=== PATIENT | female | born 1955 | race Caucasian/White ===

== ENCOUNTER → 2016-11-27 | Outpatient (CLI) | payer OTHER ==
[2015-11-01 10:09] VITALS: BP 119/80
[~2016-11-27] MED LIST: AMLO10TA4 PO; AMOX1TAB61 PO; BENZ100C PO; BUPR100T6 PO; CALC500T30 PO; CHOL500016 PO; CLOP75TA57 PO; CLOT10TR PO; ESCITALOPRAM OX20 MG PO; FAMO20TA5 PO; GABA-586 PO; GLUC100018 PO; GLYB5TAB3 PO; LAMO200T3 PO; LIPITOR80 MG PO; LISI-379 PO; METO25TA2 PO; MONT10TA6 PO; MUPI22OI2 TP; NYST15CR TP; PANT40TA3 PO; SITA1TAB7 PO; TRAM-48 PO
--- NOTE | 2016-11-27 10:36 | RAD ---
DATE: 11/27/2016. EXAM: DIGITAL SCREEN BILAT W/CAD. HISTORY: Routine mammographic screening. COMPARISON: 08/31/2014, 07/09/2010, 08/30/2013. This study was interpreted with the benefit of Computerized Aided Detection (CAD). FINDINGS: The breast parenchyma is primarily fatty replaced. There are no suspicious masses, microcalcifications or architectural distortion. A postbiopsy clip is noted superolaterally on the right. Scattered and coarse calcifications are benign. BI-RADS CATEGORY: 2 BENIGN FINDING(S). RECOMMENDED FOLLOW-UP: 12M 12 MONTH FOLLOW-UP. PQRS compliance statement: Patient information was entered into a reminder system with a target due date 11/27/2017 for the next mammogram. Mammography is a sensitive method for finding small breast cancers, but it does not detect them all and is not a substitute for careful clinical examination. A negative mammogram does not negate a clinically suspicious finding and should not result in delay in biopsying a clinically suspicious abnormality. "Our facility is accredited by the [employer]ography [employer]."
== END | disposition home or self-care (01) ==
LOC: MAMMO 08:40
PROVIDERS: ATTEND Family Medicine
DX: Z12.31 Encounter for screening mammogram for malignant neoplasm of breast (principal)
CPT/HCPCS: G0202; 77067

== ENCOUNTER 2017-07-30 17:13 | Emergency (ER) | payer OTHER ==
[~2017-07-30] VITALS: Ht 170.2 cm; Wt 75.7 kg
[2017-07-30 17:15] VITALS: BP 137/80
--- NOTE | 2017-07-30 17:59 | PHYS DOC ---
Past History Past Medical History: Diabetes, High Cholesterol, Hypertension, Other Past Surgical History: Appendectomy, Other Alcohol Use: Rarely Drug Use: None Adult General Chief Complaint Chief Complaint: NAUSEA/VOMITING/DIARRHEA HPI HPI Patient is a 62 year old F who presents with nausea and vomiting that started last night. Trace a states that she was seen at her doctor's office for left lower leg swelling and redness. She was diagnosed with cellulitis and started on Keflex. She is on taken 1 dose last night and began vomiting thereafter. She states that she does not feel this is related to her Keflex because she has had similar symptoms in the past without Keflex. She denies abdominal pain. She feels that the redness and swelling in her leg is improved with elevation. She is diabetic and her sugars have been running moderately high in the 200s recently. She feels this is due to a change in her diabetic medication. She has no other associated symptoms at this time. She has no other exacerbating or alleviating factors. Review of Systems Review of Systems Constitutional: Denies fever or chills [] Eyes: Denies change in visual acuity, redness, or eye pain [] HENT: Denies nasal congestion or sore throat [] Respiratory: Denies cough or shortness of breath [] Cardiovascular: No additional information not addressed in HPI [] GI: Negative except history of present illness : Denies dysuria or hematuria [] Musculoskeletal: Denies back pain or joint pain [] Integument: Negative except history of present illness Neurologic: Denies headache, focal weakness or sensory changes [] Endocrine: Denies polyuria or polydipsia [] All other systems were reviewed and found to be within normal limits, except as documented in this note. Family History Family History No pertinent family medical history was reported Allergies Allergies Allergies Coded Allergies Type Severity Reaction Last Updated Verified Sulfa (Sulfonamide Antibiotics) Allergy Intermediate Anaphylaxis 07/30/17 Yes aspirin Allergy Intermediate Anaphylaxis 07/30/17 Yes codeine Allergy Intermediate vomiting 07/30/17 Yes guaifenesin Allergy Intermediate 07/30/17 Yes ciprofloxacin Allergy Unknown Anaphylaxis 07/30/17 Yes dicyclomine Allergy Unknown 07/30/17 Yes erythromycin base Allergy Unknown Rash 07/30/17 Yes flurbiprofen Allergy Unknown Rash 07/30/17 Yes heparin Allergy Unknown Swelling 07/30/17 Yes medroxyprogesterone Allergy Unknown 07/30/17 Yes methylprednisolone Allergy Unknown 07/30/17 Yes metronidazole Allergy Unknown Swelling 07/30/17 Yes nitrofurantoin Allergy Unknown 07/30/17 Yes tolbutamide Allergy Unknown Anaphylaxis 07/30/17 Yes trimethoprim Allergy Unknown Anaphylaxis 07/30/17 Yes Uncoded Allergies Type Severity Reaction Last Updated Verified guiafenesin Allergy Intermediate 11/01/15 obsolete Allergy Intermediate 11/01/15 entex Allergy Unknown Rash 07/30/17 Physical Exam Physical Exam Constitutional: Well developed, well nourished, no acute distress, non-toxic appearance. [] HENT: Normocephalic, atraumatic Eyes: EOMI, conjunctiva normal, no discharge. [] Neck: Normal range of motion, no tenderness, supple, no stridor. [] Cardiovascular:Heart rate regular rhythm, Lungs & Thorax: Bilateral breath sounds clear to auscultation [] Abdomen: Bowel sounds normal, soft, no tenderness, no masses, no pulsatile masses. [] Skin: Warm, dry, no erythema, no rash. [] Extremities: No tenderness, no cyanosis, no clubbing, ROM intact, no edema. [] Neurologic: Alert and oriented X 3, normal motor function, normal sensory function, no focal deficits noted. [] Psychologic: Affect normal, judgement normal, mood normal. [] EKG EKG [] Radiology/Procedures Radiology/Procedures [] Course & Med Decision Making Course & Med Decision Making Pertinent Labs and Imaging studies reviewed. (See chart for details) Care was transferred to Dr. Maldonado at 1800 for further management. Signout obtained at 6 PM. Patient seen and examined by me. Chart review. Patient is currently asymptomatic and feels much better. Patient's ER workup has been negative with a normal CBC and CMP. Patient's physical exam currently does not show any erythema or abnormality to her lower extremity after 1 dose of Keflex. Etiology of her abdominal discomfort and nausea is unclear. Patient feels cold. However with the plan to be discharged home, stop all antibiotics, and follow-up with primary care doctor if her symptoms recur. Dragon Disclaimer Dragon Disclaimer This electronic medical record was generated, in whole or in part, using a voice recognition dictation system. Departure Departure: Impression: Primary Impression: Vomiting Additional Impression: Abdominal pain Disposition: HOME, SELF-CARE Condition: IMPROVED Referrals: GEO VERA DO (PCP) Patient Instructions: Cellulitis, Nausea and Vomiting Scripts Ondansetron (ZOFRAN ODT) 4 Mg Tab.rapdis 1 TAB SL Q8HRS for NAUSEA, #15 TAB Prov: MIL MALDONADO MD 07/30/17 Problem Qualifiers SOBEIDA WEEKS MD Jul 30, 2017 17:59 MIL MALDONADO MD Jul 30, 2017 19:54
[2017-07-30] MEDS ORDERED: IV NORMAL SALINE 1,000ML 1,000 ML IV ONE (18:00)
[2017-07-30] MEDS ORDERED: ONDANSETRON PF 4 MG/2 ML VIAL. IV ONE (18:00)
[2017-07-30] MEDS ORDERED: ONDANSETRON PF 4 MG/2 ML VIAL. ONE (18:05)
[2017-07-30 18:17] LABS: BASO % 0 % (0-3); EOS % 1 % (0-3); HEMATOCRIT 45.2 % (36.0-47.0); HEMOGLOBIN 15.4 g/dL (12.0-15.5); LYMPH # 1.6 x10^3/uL (1.0-4.8); LYMPH % 22 % (24-48); MEAN CORPUSCULAR HEMOGLOBIN 32 pg (25-35); MEAN CORPUSCULAR HGB CONC 34 g/dL (31-37); MEAN CORPUSCULAR VOLUME 93 fL (79-100); MONO # 0.6 x10^3/uL (0.0-1.1); MONO % 8 % (0-9); NEUT # 5.4 x10^3uL (1.8-7.7); NEUT % 70 % (31-73); PLATELET COUNT 267 x10^3/uL (140-400); RED BLOOD COUNT 4.84 x10^6/uL (3.50-5.40); RED CELL DISTRIBUTION WIDTH 13.5 % (11.5-14.5); WHITE BLOOD COUNT 7.6 x10^3/uL (4.0-11.0)
[2017-07-30 18:27] LABS: CALCIUM 10.2 mg/dL (8.5-10.1); CREATININE 1.1 mg/dL (0.6-1.0); POTASSIUM 4.2 mmol/L (3.5-5.1)
[2017-07-30] MEDS ORDERED: ONDA4TAB10 SL (19:54)
[2017-07-30 20:10] LABS: BILIRUBIN,URINE NEG (NEG); CLARITY,URINE HAZY; COLOR,URINE YELLOW; GLUCOSE,URINE 250 mg/dL (NEG); NITRITE,URINE NEG (NEG); UROBILINOGEN,URINE 0.2 mg/dL (0.2 mg/dL)
[2017-07-30 20:11] LABS: BACTERIA,URINE 0 /HPF (0-FEW); HYALINE CASTS, URINE MOD /HPF; SQUAMOUS EPITHELIAL CELL,UR MOD /LPF
== END 2017-07-30 20:24 | disposition home or self-care (01) ==
LOC: ER 17:13
DX: R11.2 Nausea with vomiting, unspecified (principal); R10.9 Unspecified abdominal pain; R22.42 Localized swelling, mass and lump, left lower limb; E11.9 Type 2 diabetes mellitus without complications; I10 Essential (primary) hypertension; E78.00 Pure hypercholesterolemia, unspecified; Z90.49 Acquired absence of other specified parts of digestive tract; Z88.6 Allergy status to analgesic agent; Z88.1 Allergy status to other antibiotic agents; Z88.5 Allergy status to narcotic agent; Z88.2 Allergy status to sulfonamides; Z88.8 Allergy status to other drugs, medicaments and biological substances
CPT/HCPCS: 36415; 80048; 81001; 83605; 83735; 85025; 96361; 96374; 99284; J2405; J7030

== ENCOUNTER 2017-12-03 22:55 | Emergency (ER) | payer OTHER ==
[~2017-12-03] VITALS: Ht 170.2 cm; Wt 76.6 kg
[~2017-12-03 22:55] MED LIST changes: +ONDA4TAB10 SL
--- NOTE | 2017-12-03 23:00 | ED.ADGEN ---
Past History Past Medical History: CAD, Diabetes, Fibromyalgia, High Cholesterol, Hypertension, IBS, Other Past Surgical History: Appendectomy, Coronary Bypass Surgery, Other Alcohol Use: Occasionally Drug Use: None Adult General Chief Complaint Chief Complaint ".. I was walking up stairs... and tripped... and hit my head on corner.. and busted my forehead open..." HPI HPI Patient is a 62 year old female who presents with above hx and complaints of trip/ fall while walking up stairs. Pt. denies loss of consciousness. Has a 6 cm laceration of Rt forehead and scalp. No next pain. Pt. has active bleeding. Laceration to depth of skull. Pt. has contusion to Rt. Hand. No other injuries reported. Pt. does not remember her last Tetanus, maybe more 10 yrs. Pt. denies any dizziness or dysrhythmia. Review of Systems Review of Systems Constitutional: Denies fever or chills [] Eyes: Denies change in visual acuity, redness, or eye pain [] HENT: Denies nasal congestion or sore throat []Complaints of laceration to Rt forehead and scalp. Respiratory: Denies cough or shortness of breath [] Cardiovascular: No additional information not addressed in HPI [] GI: Denies abdominal pain, nausea, vomiting, bloody stools or diarrhea [] : Denies dysuria or hematuria [] Musculoskeletal: Denies back pain or joint pain [] Integument: Denies rash or skin lesions [] Neurologic: Denies headache, focal weakness or sensory changes [] Endocrine: Denies polyuria or polydipsia [] All other systems were reviewed and found to be within normal limits, except as documented in this note. Family History Family History Non-contributory Current Medications Current Medications Current Medications Medications (Trade) Dose Ordered Sig/Janeen Start Time Stop Time Status Last Admin Dose Admin Bupivacaine HCl (Sensorcaine Mpf 0.5%) 30 ml 1X ONCE 12/03/17 23:30 12/03/17 23:47 DC 12/03/17 23:30 30 ML Bupivacaine HCl/ Epinephrine Bitart (Sensorcain-Mpf Epi 0.5%-1:[id number]) 30 ml STK-MED ONCE 12/03/17 23:38 12/03/17 23:39 DC Diphtheria/ Tetanus/Acell Pertussis (Boostrix) 0.5 ml STK-MED ONCE 12/03/17 23:39 12/03/17 23:40 DC Lidocaine HCl 20 ml STK-MED ONCE 12/03/17 23:38 12/03/17 23:39 DC Lidocaine/ Epinephrine (Xylocaine 2%-Epi 1:100,000) 20 ml 1X ONCE 12/03/17 23:30 12/03/17 23:47 DC 12/03/17 23:30 20 ML Tetanus/ Diphtheria Toxoids Adsorbed (Tenivac Vial) 0.5 ml ONCE ONCE 12/03/17 23:45 12/03/17 23:47 DC 12/03/17 23:45 0.5 ML Allergies Allergies Allergies Coded Allergies Type Severity Reaction Last Updated Verified Sulfa (Sulfonamide Antibiotics) Allergy Intermediate Anaphylaxis 07/30/17 Yes aspirin Allergy Intermediate Anaphylaxis 07/30/17 Yes codeine Allergy Intermediate vomiting 07/30/17 Yes guaifenesin Allergy Intermediate 07/30/17 Yes ciprofloxacin Allergy Unknown Anaphylaxis 07/30/17 Yes dicyclomine Allergy Unknown 07/30/17 Yes erythromycin base Allergy Unknown Rash 07/30/17 Yes flurbiprofen Allergy Unknown Rash 07/30/17 Yes heparin Allergy Unknown Swelling 07/30/17 Yes medroxyprogesterone Allergy Unknown 07/30/17 Yes methylprednisolone Allergy Unknown 07/30/17 Yes metronidazole Allergy Unknown Swelling 07/30/17 Yes nitrofurantoin Allergy Unknown 07/30/17 Yes tolbutamide Allergy Unknown Anaphylaxis 07/30/17 Yes trimethoprim Allergy Unknown Anaphylaxis 07/30/17 Yes Uncoded Allergies Type Severity Reaction Last Updated Verified guiafenesin Allergy Intermediate 11/01/15 obsolete Allergy Intermediate 11/01/15 entex Allergy Unknown Rash 07/30/17 Physical Exam Physical Exam Constitutional: Moderately acute distress, non-toxic appearance. [] HENT: Normocephalic, 10 cm laceration to forehead and scalp Rt. side, bilateral external ears normal, oropharynx moist, no oral exudates, nose normal. [] Eyes: PERRLA, EOMI, conjunctiva normal, no discharge. [] Neck: Normal range of motion, no tenderness, supple, no stridor. [] Cardiovascular:Heart rate regular rhythm, no murmur [] PMI to Lt. Lungs & Thorax: Bilateral breath sounds equal apex wiith scattered wheezing on auscultation []Mid line scar. Abdomen: Bowel sounds normal, soft, no tenderness, no masses, no pulsatile masses. [] Old surgery scars. Skin: Warm, dry, no erythema, no rash. [] Poor turgor. Back: No tenderness, no CVA tenderness. [] Extremities: No tenderness, no cyanosis, no clubbing, ROM intact, trace ankle edema. [] Contusion to Rt. hand. Arthritic changes. Neurologic: Alert and oriented X 3, normal motor function, normal sensory function, no focal deficits noted. [] report has no obvious mental status change. DTR's +2, patella and brachial. Ambulatory without problem.s Psychologic: Affect anxious, judgement normal, mood normal. [] Current Patient Data Vital Signs Vital Signs Date Time Temp Pulse Resp B/P (MAP) Pulse Ox O2 Delivery O2 Flow Rate FiO2 12/03/17 23:16 97.7 64 20 98 Room Air EKG EKG [] Radiology/Procedures Radiology/Procedures My interpretation of hand x-ray Rt. shows no frx. or dislocation. Arthritic changes. CT of head shows not fracture, bleed, shift, edema,. Does show small external hematoma. See formal report when available[] Course & Med Decision Making Course & Med Decision Making Pertinent Labs and Imaging studies reviewed. (See chart for details) Procedure note laceration repair-- laceration washed with soap and water. Injected edge laceration with Sensorcaine and lidocaine. Re-irrigated laceration with NS. Then 6 internal sutures with 3-0 Vicryl. And 6 external sutures with 4-0 Prolene. Pt. to keep laceration clean and dry. May use peroxide to clean laceration site and hair. Apply Polysporin 4 times a day. Return if any problems. Sutures to be taken out in 10 days. Head injury precautions. [] Final Impression Final Impression 1. Laceration 6 cm Rt side forehead 2. Head Injury 3. Contusion to Rt. hand 4. Trip/ Fall [] Dragon Disclaimer Dragon Disclaimer This electronic medical record was generated, in whole or in part, using a voice recognition dictation system. ENE MORAN MD Dec 03, 2017 23:00
[2017-12-03 23:16] VITALS: BP 151/78
[2017-12-03] MEDS ORDERED: LIDOCAINE 2%/EPI 1:100,000 20 ML VIAL. IJ ONE (23:30)
[2017-12-03] MEDS ORDERED: BUPIVACAINE MPF 0.5% 30 ML VIAL. SQ ONE (23:30)
[2017-12-03] MEDS ORDERED: BUPIVAC MPF-EPI 0.5%-1:200000 30 ML VIAL. ONE (23:38)
[2017-12-03] MEDS ORDERED: LIDOCAINE 2% 20 ML VIAL. ONE (23:38)
[2017-12-03] MEDS ORDERED: DIPHTH,PERTUSS(ACELL),TET TOX 0.5 ML DISP.SYRIN. VAX IM ONE (23:39)
[2017-12-03] MEDS ORDERED: TETANUS AND DIPHTHERIA TOX/PF 0.5 ML VIAL. VAX IM ONE (23:45)
--- NOTE | 2017-12-04 00:52 | RAD ---
CT brain without contrast. HISTORY: Injury from fall, laceration upper posterior head, headache CT scan of brain was done without contrast. There is no intracranial hemorrhage or subdural hematoma. Ventricles are normal in size. There is no mass or shift of the midline. An acute CVA is not identified. A skull fracture is not evident. Sinuses are clear. IMPRESSION: 1. No intracranial hemorrhage or acute finding noted. PQRS Compliance Statement: One or more of the following individualized dose reduction techniques were utilized for this examination: 1. Automated exposure control 2. Adjustment of the mA and/or kV according to patient size 3. Use of iterative reconstruction technique Electronically signed by: Sagar oJhnson MD (12/04/2017 12:49 AM) [id number]
[2017-12-04] MEDS ORDERED: ACET500T68 PO (01:24)
[2017-12-04] MEDS ORDERED: BACI28.34 TP (01:24)
--- NOTE | 2017-12-04 01:29 | RAD ---
Right hand 3 views. HISTORY: Right hand injury from fall, right fifth digit pain 3 views were taken of the right hand. There is no acute fracture. There is arthritis the first carpometacarpal joint with mild joint space narrowing and spurring. There is arthritis at the distal interphalangeal joints most prominent at the fifth finger with joint space narrowing and spurring. There is no acute fracture. IMPRESSION: 1. Arthritis right hand and wrist. 2. No acute fracture. Electronically signed by: Sagar Johnson MD (12/04/2017 1:25 AM) [id number]
== END 2017-12-04 01:30 | disposition home or self-care (01) ==
LOC: ER 22:55
DX: S01.81XA Laceration without foreign body of other part of head, initial encounter (principal); S01.01XA Laceration without foreign body of scalp, initial encounter; S60.221A Contusion of right hand, initial encounter; I25.810 Atherosclerosis of coronary artery bypass graft(s) without angina pectoris; E11.9 Type 2 diabetes mellitus without complications; M79.7 Fibromyalgia; E78.00 Pure hypercholesterolemia, unspecified; I10 Essential (primary) hypertension; Z88.2 Allergy status to sulfonamides; Z88.6 Allergy status to analgesic agent; Z88.5 Allergy status to narcotic agent; Z88.1 Allergy status to other antibiotic agents; Z88.8 Allergy status to other drugs, medicaments and biological substances; W10.8XXA Fall (on) (from) other stairs and steps, initial encounter; Y93.01 Activity, walking, marching and hiking; Y99.8 Other external cause status; Y92.89 Other specified places as the place of occurrence of the external cause
CPT/HCPCS: 12014; 70450; 73130; 90471; 90714; 99284; J3490

== ENCOUNTER → 2017-12-16 | Outpatient (CLI) | payer OTHER ==
[2017-12-03 23:16] VITALS: BP 151/78
[~2017-12-16] MED LIST changes: +ACET500T68 PO; +BACI28.34 TP
--- NOTE | 2017-12-16 13:42 | RAD ---
DATE: 12/16/2017 EXAM: DIGITAL SCREEN BILAT W/CAD HISTORY: Routine screening COMPARISON: 11/27/2016 This study was interpreted with the benefit of Computerized Aided Detection (CAD). The breast parenchyma shows scattered fibroglandular densities. Breast parenchyma level B. FINDINGS: An old breast biopsy marker is again noted laterally on the right. No new or enlarging breast densities are seen. Scattered benign type calcifications are present. No suspicious microcalcifications have developed. IMPRESSION: Stable mammograms without evidence of malignancy. BI-RADS CATEGORY: 2 BENIGN FINDING(S) RECOMMENDED FOLLOW-UP: 12M 12 MONTH FOLLOW-UP PQRS compliance statement: Patient information was entered into a reminder system with a target due date for the next mammogram. Mammography is a sensitive method for finding small breast cancers, but it does not detect them all and is not a substitute for careful clinical examination. A negative mammogram does not negate a clinically suspicious finding and should not result in delay in biopsying a clinically suspicious abnormality. "Our facility is accredited by the [employer]."
== END | disposition home or self-care (01) ==
LOC: MAMMO 12:57
PROVIDERS: ATTEND Family Medicine
DX: Z12.31 Encounter for screening mammogram for malignant neoplasm of breast (principal); I10 Essential (primary) hypertension; E11.9 Type 2 diabetes mellitus without complications; E78.00 Pure hypercholesterolemia, unspecified; Z88.1 Allergy status to other antibiotic agents; Z88.2 Allergy status to sulfonamides; Z88.8 Allergy status to other drugs, medicaments and biological substances; Z88.6 Allergy status to analgesic agent; Z88.5 Allergy status to narcotic agent
CPT/HCPCS: 77067

== ENCOUNTER → 2018-12-17 | Outpatient (CLI) | payer MEDICARE, OTHER ==
[~2018-12-17] MED LIST changes: -MONT10TA6 PO; +MONT10TA80 PO
--- NOTE | 2018-12-17 11:18 | RAD ---
DATE: 12/17/2018 EXAM: MAMMO KURT SCREENING BILATERAL HISTORY: Routine screening. COMPARISON: None This study was interpreted with the benefit of Computerized Aided Detection (CAD). FINDINGS: Breast Density: SCATTERED The breast parenchyma shows scattered fibroglandular densities. Breast parenchyma level B. The skin and nipples are within normal limits. No suspicious calcifications, spiculated mass or area of architectural distortion. Benign-appearing bilateral scattered calcifications. IMPRESSION: No mammographic evidence of malignancy. BI-RADS CATEGORY: 2 BENIGN FINDING(S) RECOMMENDED FOLLOW-UP: 12M 12 MONTH FOLLOW-UP PQRS compliance statement: Patient information was entered into a reminder system with a target due date for the next mammogram. Mammography is a sensitive method for finding small breast cancers, but it does not detect them all and is not a substitute for careful clinical examination. A negative mammogram does not negate a clinically suspicious finding and should not result in delay in biopsying a clinically suspicious abnormality. "Our facility is accredited by the [employer] Mammography [employer]."
== END | disposition home or self-care (01) ==
LOC: MAMMO 09:53
PROVIDERS: ATTEND Family Medicine
DX: Z12.31 Encounter for screening mammogram for malignant neoplasm of breast (principal); N64.89 Other specified disorders of breast
CPT/HCPCS: 77067